=== PATIENT | female | born 1985 | race Caucasian/White ===

== ENCOUNTER → 2020-03-24 | Outpatient (CLI) | payer BC, MEDICAID ==
[~2020-03-24] MED LIST: OMEG12003 PO; OXYC1TAB23 PO; PRENTAB9 PO; VITATAB74 PO
== END ==
LOC: M PLALAB 09:31
PROVIDERS: ATTEND Advanced Practice Midwife
DX: Z13.79 Encounter for other screening for genetic and chromosomal anomalies (principal)

== ENCOUNTER → 2020-04-03 | Outpatient (CLI) | payer BC, MEDICAID ==
--- NOTE | 2020-04-03 16:57 | REP ---
Clinical: Anatomical evaluation. Comparison: None . Findings: Examination demonstrates a single live intrauterine in breech presentation. motion is identified by technologist. Placenta is noted posterior and grade zero without evidence for placenta previa or abruption. Amniotic fluid volume is normal. Cervix measures 3.1 cm in length and appears closed. No evidence for nuchal cord. Gestational age by LMP 21 weeks 0 days with ADAMARIS 08/14/2020 . Gestational age by current measurements 20 weeks 5 days with ADAMARIS 08/16/2020 . FHR equals 152 beats per minute. BPD 4.9 cm 21 weeks 0 days HC 18.5 cm 20 weeks 6 days AC 15.7 cm 20 weeks 6 days FL 3.5 cm 20 weeks 6 days HL 3.3 cm 20 weeks 6 days HC/AC ratio 1.18 Estimated weight 384 grams ( 54th of percentile). Anatomical assessment demonstrates normal structures including cranium, choroid plexus, cavum, cerebellum/posterior fossa, facial features, lungs, diaphragm, stomach, three-vessel cord, kidneys/bladder, and extremities. Limited evaluation of the four-chamber heart, cord insertion, and spine. Impression: Single live intrauterine in breech presentation demonstrating appropriate interval growth. Anatomical limitations as noted above may warrant reevaluation and follow-up. No gross abnormalities appreciated.
== END ==
LOC: M WHC 15:25
PROVIDERS: ATTEND Advanced Practice Midwife
DX: Z36.3 Encounter for antenatal screening for malformations (principal); Z3A.20 20 weeks gestation of pregnancy

== ENCOUNTER → 2020-07-21 | Outpatient (CLI) | payer OTHER ==
--- NOTE | 2020-07-21 09:01 | REP ---
INDICATION: O26.843 UTERINE SIZE-DATE DISCREPANCY,GROWTH COMPARISON: 04/28/2020 TECHNIQUE: Transabdominal obstetrical ultrasound with color Doppler evaluation. FINDINGS: Examination demonstrates a single live intrauterine in breech presentation. motion is identified by technologist. Placenta is noted posterior and grade 2 without evidence for placenta previa or abruption. Amniotic fluid volume is normal. Cervix measures 3.1 cm in length and appears closed. No evidence for nuchal cord. Gestational age by LMP 36 weeks 4 days with ADAMARIS 08/14/2020. Gestational age by current measurements 35 weeks 2 days with ADMAARIS 08/23/2020. FHR equals 144 beats per minute. BPD: 8.8 cm; 35 weeks 3 days HC: 31.9 cm; 35 weeks 6 days AC: 29.9 cm; 33 weeks 6 days FL: 6.8 cm; 35 weeks 1 day HL: 6.2 cm; 36 weeks 1 day HC/AC ratio: 1.07 Estimated weight 2465 grams (11thpercentile). THIAGO: 10.9 cm (7.6-24.6) Umbilical cord SD ratio: 2.5 IMPRESSION: 1. Single live intrauterine in breech presentation demonstrating appropriate interval growth and estimated weight. 2. Amniotic fluid volume normal. <Electronically signed by Abdiel Thomason > 07/21/20 [id number]
== END ==
LOC: M WHC 07:54
PROVIDERS: ATTEND Advanced Practice Midwife
DX: O26.843 Uterine size-date discrepancy, third trimester (principal); Z3A.35 35 weeks gestation of pregnancy; O32.1XX0 Maternal care for breech presentation, not applicable or unspecified

== ENCOUNTER → 2020-07-21 | Outpatient (REF) | payer OTHER ==
[~2020-07-21] MED LIST changes: -OXYC1TAB23 PO
== END ==
LOC: M SFHCWAGY 12:56
PROVIDERS: ATTEND Advanced Practice Midwife
DX: O09.523 Supervision of elderly multigravida, third trimester (principal)

== ENCOUNTER 2020-07-25 15:00 | Outpatient (CLI) | payer OTHER ==
[~2020-07-25] VITALS: Ht 182.9 cm; Wt 84.0 kg
[2020-07-25] MEDS ORDERED: PRENTAB9 PO (15:21)
[2020-07-25] MEDS ORDERED: VITATAB74 PO (15:21)
[2020-07-25] MEDS ORDERED: OMEG12003 PO (15:21)
[2020-07-25 16:18] VITALS: BP 131/74
[2020-07-25 16:36] VITALS: BP 133/75
--- NOTE | 2020-07-25 17:12 | IPNPDOC ---
Obstetrical Progress Note Date of Service Jul 25, 2020 Subjective 35 yo at 37 weeks presents for a scheduled attempt at ECV. Breech diagnosed in office by ultrasound. She feels occasional mild contractions. Assessment Variability: Moderate Accelerations: Positive Heart Rate Tracing: Category I Tocometer Contractions: Yes Frequency: regular, irregular Duration: less than 60 seconds Assessment and Plan Additional Comments 35 yo at 37 weeks with breech fetus Procedure Note: Written consent obtained. Pt in supine position. Gel applied to abdomen. Attempt at ECV performed by pushing up on buttocks, and down on the vertex in a clockwise fashion. Procedure repeated a second time, without success. Ultrasound guidance used during procedure. NST category one after attempt. No further attempts made. Plan to schedule at 39 weeks fu office as scheduled BULL WADDELL MD Jul 25, 2020 17:12
== END 2020-07-25 17:30 | disposition home or self-care (01) ==
LOC: M LDO 15:00
PROVIDERS: ATTEND Specialist
DX: O32.1XX0 Maternal care for breech presentation, not applicable or unspecified (principal); Z3A.37 37 weeks gestation of pregnancy

== ENCOUNTER → 2020-08-05 | Outpatient (CLI) | payer OTHER ==
[~2020-08-05] MED LIST changes: +OXYC1TAB23 PO
== END ==
LOC: M LABSMTC 11:32
PROVIDERS: ATTEND Anesthesiology
DX: Z01.818 Encounter for other preprocedural examination (principal); Z20.828 Contact with and (suspected) exposure to other viral communicable diseases
CPT/HCPCS: C9803; U0003

== ENCOUNTER 2020-08-10 05:08 | Inpatient (IN) | payer OTHER ==
[2020-08-10] VITALS (21 sets, daily range): BP systolic 100–135; BP diastolic 55–80
[~2020-08-10] VITALS: Ht 175.3 cm; Wt 83.0 kg
[~2020-08-10 05:08] MED LIST changes: -OXYC1TAB23 PO
[2020-08-10] MEDS ORDERED: LACTATED RINGER'S 1000 ML IV STA (05:19)
[2020-08-10] MEDS ORDERED: LR 1,000 ML IV SCH ×3 (05:19→08:45)
[2020-08-10] MEDS ORDERED: BICITRA 30ML SOLN UDC PO ONE (05:30)
[2020-08-10] MEDS ORDERED: ceFAZolin SOD 2 GM in IV 1 EA IV ONE (05:30)
[2020-08-10 06:11] LABS: HEMATOCRIT 37.4 % (36.0-47.0); HEMOGLOBIN 12.3 g/dl (12.0-15.5); MEAN CORPUSCULAR HEMOGLOBIN 29.6 pg (27.0-33.0); MEAN CORPUSCULAR HGB CONC 32.9 g/dl (32.0-36.5); MEAN CORPUSCULAR VOLUME 89.9 fl (80.0-96.0); PLATELET COUNT, AUTOMATED 161 10^3/uL (150-450); RED BLOOD COUNT 4.16 10^6/uL (4.00-5.40); WHITE BLOOD COUNT 7.5 10^3/uL (4.0-10.0)
[2020-08-10] MEDS ORDERED: KETOROLAC 60MG 2ML VIAL As Ordered ONE (07:15)
[2020-08-10] MEDS ORDERED: ONDANSETRON 4MG/2ML VIAL As Ordered ONE (07:15)
[2020-08-10] MEDS ORDERED: dexameTHASONE 4 MG/ML 1ML VIAL (J1100 PER 1MG) As Ordered ONE (07:15)
[2020-08-10] MEDS ORDERED: OXYTOCIN INJ 10 UNITS/ML VIAL (J2590) As Ordered ONE (07:16)
[2020-08-10] MEDS ORDERED: MORPHINE PRES-FREE INJ 10 MG/10 ML VIAL (J2274) As Ordered ONE (07:17)
[2020-08-10] MEDS ORDERED: fentaNYL 100 MCG/2 ML INJECTION (J3010) As Ordered ONE (07:17)
[2020-08-10] MEDS ORDERED: diphenhydrAMINE 50MG/ML VIAL (J1200) IV PRN (07:40)
[2020-08-10] MEDS ORDERED: ONDANSETRON 4MG/2ML VIAL IV PRN ×3 (07:40→08:45)
[2020-08-10] MEDS ORDERED: NALBUPHINE HCL 10 MG/ML AMP (J2300) IV PRN (07:40)
[2020-08-10] MEDS ORDERED: METOCLOPRAMIDE INJ 10MG/2ML VIAL (J2765 PER 1) IV PRN ×2 (07:40→08:45)
[2020-08-10] MEDS ORDERED: NALOXONE INJ 0.4MG/1ML VIAL (J2310 PER 1MG) IV PRN ×2 (07:40)
[2020-08-10] MEDS ORDERED: ePHEDrine SULFATE 25 MG/5 ML(5MG/ML) SYRINGE As Ordered ONE (07:51)
[2020-08-10] MEDS ORDERED: OXYTOCIN DRIP 30 UNITS in IV 1 EA IV SCH (08:32)
--- NOTE | 2020-08-10 08:41 | ROOPDOC ---
[facility] Report Of Operation Report of Operation DATE OF PROCEDURE: 08/10/20 PREPROCEDURE DIAGNOSES: 39 weeks, breech. POSTPROCEDURE DIAGNOSES: same. PROCEDURE: Primary low transverse . SURGEON: Bull Waddell MD MALT SPECIFICATIONS CONTROL ASSISTANT: Caitlin Singletary CNM ANESTHESIA: Spinal. ESTIMATED BLOOD LOSS: Approximately 400 mL. Findings: 7 lb 0 oz male, 's 9, 9. Brijesh breech, Normal uterus, tubes ovaries. COMPLICATIONS: none. Summary: The patient was taken to the OR where spinal anesthesia was induced. A Barker Catheter was placed. A Pfannenstiel skin incision was created with a scalpel. The fascia was nicked and extended. The peritoneal cavity was entered. A Mobius retractor was placed. A curvilinear incision was made in the lower uterine segment. Membranes were ruptured with clear fluid. The was delivered from the breech position using standard maneuvers without difficulty. The cord was doubly clamped and cut. The was handed to the awaiting nurses. The uterus was closed with O-Vicryl in a running locked fashion. A second imbricating layer was placed. The peritoneum was closed with 2-O chromic in a running fashion. The fascia was closed with O-Vicryl in a running fashion. The deep layer was irrigated. The skin was closed with 4-O Monocryl in a running fashion. Sponge, needle, instrument counts correct. Caitlin Singletary CNM, assisted throughout the procedure. She helped create all layers of the incision. She was indispensable to the procedure. BULL WADDELL MD Aug 10, 2020 08:41
[2020-08-10] MEDS ORDERED: fentaNYL 100 MCG/2 ML INJECTION (J3010) IV PRN (08:45)
[2020-08-10] MEDS ORDERED: MEASLES,MUMPS,RUBELLA VACCINE INJ (MMR-II) (90707) SC SCH (08:45)
[2020-08-10] MEDS ORDERED: RHOGAM 300 MCG (1500 IU) INJ (J2790) IM SCH (08:45)
[2020-08-10] MEDS ORDERED: PERCOCET 5MG/325MG TAB PO PRN ×2 (08:45)
[2020-08-10] MEDS ORDERED: OXYTOCIN 30 UNITS IN 0.9% NaCl 500ML IV BAG (J2590) As Ordered ONE (09:12)
[2020-08-10] MEDS: PRENATAL VITAMINS CHEWABLE TABLET PO SCH (12:40)
[2020-08-10] MEDS: PERCOCET 5MG/325MG TAB PO PRN (13:00)
[2020-08-10] MEDS: KETOROLAC 30 MG/ML 1ML VIAL IV SCH ×2 (14:00→19:43)
[2020-08-10] MEDS ORDERED: OXYC1TAB23 PO (23:23)
[2020-08-11] MEDS: KETOROLAC 30 MG/ML 1ML VIAL IV SCH (01:53)
[2020-08-11 02:00] VITALS: BP 116/56
[2020-08-11 06:00] VITALS: BP 114/59
[2020-08-11 07:23] LABS: HEMATOCRIT 37.5 % (36.0-47.0); HEMOGLOBIN 12.1 g/dl (12.0-15.5); MEAN CORPUSCULAR HEMOGLOBIN 29.8 pg (27.0-33.0); MEAN CORPUSCULAR HGB CONC 32.3 g/dl (32.0-36.5); MEAN CORPUSCULAR VOLUME 92.4 fl (80.0-96.0); PLATELET COUNT, AUTOMATED 151 10^3/uL (150-450); RED BLOOD COUNT 4.06 10^6/uL (4.00-5.40); WHITE BLOOD COUNT 11.6 10^3/uL (4.0-10.0)
[2020-08-11] MEDS: PRENATAL VITAMINS CHEWABLE TABLET PO SCH (08:22)
[2020-08-11] MEDS: IBUPROFEN 800 MG TAB PO SCH ×2 (09:54→17:43)
[2020-08-11 10:10] VITALS: BP 100/68
[2020-08-11 14:08] VITALS: BP 136/70
[2020-08-11] MEDS: PERCOCET 5MG/325MG TAB PO PRN ×2 (14:12→21:51)
[2020-08-11 18:02] VITALS: BP 120/57
[2020-08-11 22:00] VITALS: BP 102/57
[2020-08-12] MEDS: IBUPROFEN 800 MG TAB PO SCH ×2 (01:18→10:37)
[2020-08-12 06:00] VITALS: BP 118/68
--- NOTE | 2020-08-12 07:33 | DS.PDOC ---
Discharge Summary General Date of Admission Aug 10, 2020 at 05:08 Date of Discharge 08/12/2020 Discharge Summary PROCEDURES PERFORMED DURING STAY: Primary section ADMITTING DIAGNOSES: 1. Breech presentation @ 39+ gestation DISCHARGE DIAGNOSES: 1. Breech presentation, delivered via primary section COMPLICATIONS/CHIEF COMPLAINT: Breech Position. HISTORY OF PRESENT ILLNESS: 35yo G3 now P3 admitted 08/10/2020 for primary section for breech presentation. Surgery performed by Dr Callaway with Cristopher Singletary CNM assist. HOSPITAL COURSE: Tolerating regular diet. Adequate pain management on oral medications. OOB independently, ambulating. Voiding and passing flatus. DISCHARGE MEDICATIONS: Please see below. ALLERGIES: Please see below. PHYSICAL EXAMINATION ON DISCHARGE: VITAL SIGNS: Please see below. GENERAL: No distress. Alert, oriented HEENT: WNL NECK: Supple CARDIOVASCULAR EXAMINATION: HRR, normotensive RESPIRATORY EXAMINATION: Clear and unlabored ABDOMINAL EXAMINATION: Fundus firm. Dressing dry, intact EXTREMITIES: Equal strength and motion SKIN: Intact NEUROLOGICAL EXAMINATION: Grossly intact PSYCHIATRIC EXAMINATION: Appropriate LABORATORY DATA: Please see below. PROGNOSIS: Good ACTIVITY: As tolerated, pelvic rest DIET: As tolerated DISCHARGE PLAN: Routine precautions. DISPOSITION: Home DISCHARGE INSTRUCTIONS: 1. Routine precautions. Call with fever, nausea, vomiting, chills, foul lochia o r wound exudate. Remove dressing day 5. RTO 2wks and 6wks DISCHARGE CONDITION: Stable TIME SPENT ON DISCHARGE: Greater than 10 minutes. Vital Signs/I&Os Vital Signs Date Time Temp Pulse Resp B/P (MAP) Pulse Ox O2 Delivery O2 Flow Rate FiO2 08/11/20 22:21 18 08/11/20 22:00 98.1 59 102/57 (72) 99 Room Air Discharge Medications Scheduled [place]-3/Dha/Epa/Fish Oil (Fish Oil 1,200 mg Softgel) 1 Each Capsule.dr, 1 CAP PO DAILY, (Reported) No.137/Iron/Folic Acd ( Vitamin Tablet) 1 Each Tablet, 1 TAB PO DAILY, (Reported) Scheduled PRN Oxycodone HCl/Acetaminophen (Oxycodone-Acetaminophen 5-325) 1 Each Tablet, 1 TAB PO TIDP PRN for pain Miscellaneous Medications Mv-Mn/Iron/Folic Acid/Herb 190 (Vitamin D3 Complete Caplet) 1 Each Tablet, 1 TAB PO, (Reported) Allergies Coded Allergies: bee venom protein (honey bee) (Verified Allergy, Severe, anaphylaxis, 08/01/20) Ronit Powell CNM Aug 12, 2020 07:33
[2020-08-12] MEDS: PERCOCET 5MG/325MG TAB PO PRN (07:42)
[2020-08-12] MEDS: PRENATAL VITAMINS CHEWABLE TABLET PO SCH (07:42)
== END 2020-08-12 13:40 | disposition home or self-care (01) | DRG 540 ==
LOC: M LDI 05:08 → M OBS 12:29
PROVIDERS: ADMIT Specialist; ATTEND Specialist
PROC: 10D00Z1 Extraction of Products of Conception, Low, Open Approach (ICD-10-PCS; principal; 2020-08-10 07:30)
DX: O32.1XX0 Maternal care for breech presentation, not applicable or unspecified (principal); Z3A.39 39 weeks gestation of pregnancy; Z37.0 Single live birth